=== PATIENT | male | born 1995 | race Caucasian/White ===

== ENCOUNTER 2017-05-14 10:53 | Inpatient (IN) | payer BC ==
[2017-05-14 11:55] LABS: ABS Basophils 0 10^3/ul (0-0.2); ABS Eosinophils 0 10^3/ul (0-0.6); ABS Lymphocytes 0.9 10^3/ul (1.0-4.8); ABS Monocytes 1.2 10^3/ul (0-0.8); ABS Neutrophils 17.8 10^3/ul (1.5-7.7); ABS Nucleated RBC 0 10^3/ul; Eosinophil % 0.1 % (0-6); Hematocrit 47 % (42-52); Hemoglobin 16.1 g/dl (14.0-18.0); Lymphocyte % 4.7 % (25-47); Mean Corpuscular HGB Conc 35 g/dl (31-36); Mean Corpuscular Hemoglobin 31 pg (27-31); Mean Corpuscular Volume 91 fL (80-94); Mean Platelet Volume 8 um3 (7.4-10.4); Nucleated Red Blood Cells % 0.1; Platelet Count 230 10^3/ul (150-450); Red Blood Count 5.14 10^6/ul (4.0-5.4); Red Cell Distribution Width 13 % (10.5-15)
[2017-05-14 12:27] LABS: EGFR Non-African American 108.3 (>60)
[2017-05-14] MEDS ORDERED: Ondansetron INJ* 2 MG/ML VIAL IV ONE ×2 (12:37→14:07)
[2017-05-14] MEDS ORDERED: NS 0.9% 1000 ML* 1,000 ML IV ONE ×2 (12:37→14:07)
[2017-05-14] MEDS ORDERED: Morphine INJ* 4 MG/ML 1 ML CARPUJECT IV ONE ×4 (12:37→14:37)
[2017-05-14] MEDS ORDERED: Ondansetron INJ* 2 MG/ML VIAL ONE ×2 (12:38→17:29)
[2017-05-14] MEDS ORDERED: Morphine INJ* 4 MG/ML 1 ML SYRINGE (NEW SYRINGE VERSION) ONE ×2 (12:38→14:36)
[2017-05-14] MEDS ORDERED: Iohexol 300* (CONTRAST) 10 ML SDV IV ONE (12:39)
[2017-05-14 14:12] LABS: Urine Appearance Clear; Urine Blood Negative (Negative); Urine Color Yellow; Urine Ketones Trace (Negative); Urine Protein 1+(30 mg/dL) (Negative); Urine Specific Gravity 1.014 (1.010-1.030); Urine Urobilinogen Negative (Negative)
--- NOTE | 2017-05-14 14:37 | ED ---
Abdominal Pain/Male - HPI Summary HPI Summary: Patient is an otherwise healthy 21-year-old male presenting from [facility] for a concern of rule out appendicitis. He endorses pain to the right lower quadrant, which began 3 days ago. Progressively worsening. Previously intermittent, now constant. Aggravated with movement, standing, ambulation, relieved only somewhat with rest and flexion at the hips. Denies any abdominal surgeries. Endorses fever, sweats, chills. He has been unable to eat however states when he does, this does not aggravate his symptoms. He does not feel hungry at this time. Last by mouth intake was 5 AM, having a soy-based protein shake. On exam at [facility], McBurney's point tenderness, Rovsing's, positive obturator, positive psoas. He also endorses nausea, but no vomiting. Denies constipation or diarrhea. He has otherwise healthy and takes no medications. - History of Current Complaint Chief Complaint: EDAbdPain Stated Complaint: ABD PAIN Hx Obtained From: Patient Onset/Duration: Sudden Onset Timing: Constant Severity Initially: Severe Severity Currently: Severe Pain Intensity: 10 Pain Scale Used: 0-10 Numeric Location: Discrete At: RLQ Radiates: No Character: Sharp, Cramping, Colicy Aggravating Factor(s): Nothing Alleviating Factor(s): Position Associated Signs And Symptoms: Positive: Diaphoresis, Fever, Decreased Appetite , Nausea. Negative: Cough, Chest Pain, Dizzy, Back Pain, Constipation, Blood in Stool, Urinary Symptoms, Vomiting, Diarrhea, Penile Discharge, Other - Risk Factors Testicular Torsion: Negative Cardiac Risk Factors: Negative - Allergies/Home Medications Allergies/Adverse Reactions: Allergies Allergy/AdvReac Type Severity Reaction Status Date / Time cat dander Allergy Itching Verified 05/14/17 10:58 dog dander Allergy Itching Verified 05/14/17 10:57 CAT Allergy Itching Uncoded 05/14/17 10:58 Home Medications: Home Medications LoraTADine TAB(NF) [Claritin 10 MG TAB(NF)] 10 mg PO DAILY PRN 05/14/17 [ History Confirmed 05/14/17] PMH/Surg Hx/FS Hx/Imm Hx Previously Healthy: Yes Endocrine/Hematology History: Denies: Hx Diabetes Cardiovascular History: Denies: Hx Hypertension - Immunization History Hx Pertussis Vaccination: No Immunizations Up to Date: Unable to Obtain/Confirm Infectious Disease History: No Infectious Disease History: Denies: Traveled Outside the [place] in Last 30 Days - Social History Occupation: Student Lives: Dormitory/Roommates Alcohol Use: None Hx Substance Use: No Substance Use Type: Reports: None Hx Tobacco Use: No Smoking Status (MU): Unknown if Ever Smoked Review of Systems Constitutional: Negative Negative: Fever, Chills, Fatigue, Skin Diaphoresis Eyes: Negative Cardiovascular: Negative Negative: Shortness Of Breath, Cough Positive: Abdominal Pain, Nausea. Negative: Vomiting, Diarrhea Genitourinary: Negative Positive: no symptoms reported, see HPI Musculoskeletal: Negative Neurological: Negative All Other Systems Reviewed And Are Negative: Yes Physical Exam Triage Information Reviewed: Yes Vital Signs On Initial Exam: Initial Vitals Temp Pulse Resp BP Pulse Ox 98.2 F 99 16 120/71 100 05/14/17 10:58 05/14/17 10:58 05/14/17 10:58 05/14/17 10:58 05/14/17 10:58 Vital Signs Reviewed: Yes Appearance: Positive: Well-Appearing, Well-Nourished Skin: Positive: Warm, Skin Color Reflects Adequate Perfusion Head/Face: Positive: Normal Head/Face Inspection Eyes: Positive: EOMI, SHIVANI, Conjunctiva Clear Neck: Positive: Supple, No Lymphadenopathy Respiratory/Lung Sounds: Positive: Clear to Auscultation, Breath Sounds Present Cardiovascular: Positive: Normal, RRR, Pulses are Symmetrical in both Upper and Lower Extremities Abdomen Description: Positive: Soft, Guarding, McBurney's Point Tenderness, Other: - Rovsing's positive, obturators positive, so is positive, tenderness over McBurney's point, negative Valle's Musculoskeletal: Positive: Normal, Strength/ROM Intact Neurological: Positive: Speech Normal Psychiatric: Positive: Normal Diagnostics - Vital Signs Vital Signs Temp Pulse Resp BP Pulse Ox 05/14/17 14:16 16 05/14/17 13:30 102 110/56 100 05/14/17 13:00 110 119/68 100 05/14/17 12:53 102 115/66 100 05/14/17 12:46 100.1 F 05/14/17 12:45 93 18 100 05/14/17 12:43 105/58 05/14/17 10:58 98.2 F 99 16 120/71 100 - Laboratory Lab Results: Lab Results 05/14/17 05/14/17 05/14/17 Range/Units 11:38 11:38 11:38 WBC 20.0 H (3.5-10.8) 10^3/ul RBC 5.14 (4.0-5.4) 10^6/ul Hgb 16.1 (14.0-18.0) g/dl Hct 47 (42-52) % MCV 91 (80-94) fL MCH 31 (27-31) pg MCHC 35 (31-36) g/dl RDW 13 (10.5-15) % Plt Count 230 (150-450) 10^3/ul MPV 8 (7.4-10.4) um3 Neut % (Auto) 89.2 H (38-83) % Lymph % (Auto) 4.7 L (25-47) % Horry % (Auto) 5.8 (0-7) % Eos % (Auto) 0.1 (0-6) % Baso % (Auto) 0.2 (0-2) % Absolute Neuts (auto) 17.8 H (1.5-7.7) 10^3/ul Absolute Lymphs (auto) 0.9 L (1.0-4.8) 10^3/ul Absolute Monos (auto) 1.2 H (0-0.8) 10^3/ul Absolute Eos (auto) 0 (0-0.6) 10^3/ul Absolute Basos (auto) 0 (0-0.2) 10^3/ul Absolute Nucleated RBC 0 10^3/ul Nucleated RBC % 0.1 Sodium 136 (133-145) mmol/L Potassium 4.0 (3.5-5.0) mmol/L Chloride 100 L (101-111) mmol/L Carbon Dioxide 30 (22-32) mmol/L Anion Gap 6 (2-11) mmol/L BUN 11 (6-24) mg/dL Creatinine 0.88 (0.67-1.17) mg/dL Est GFR ( Amer) 139.3 (>60) Est GFR (Non-Af Amer) 108.3 (>60) BUN/Creatinine Ratio 12.5 (8-20) Glucose 115 H (70-100) mg/dL Lactic Acid 1.7 (0.5-2.0) mmol/L Calcium 9.9 (8.6-10.3) mg/dL Magnesium 1.9 (1.9-2.7) mg/dL Total Bilirubin 0.80 (0.2-1.0) mg/dL AST 14 (13-39) U/L ALT 13 (7-52) U/L Alkaline Phosphatase 82 (34-104) U/L Total Creatine Kinase 44 (10-223) U/L C-Reactive Protein 24.93 H (< 5.00) mg/L Total Protein 8.0 (6.4-8.9) g/dL Albumin 4.7 (3.2-5.2) g/dL Globulin 3.3 (2-4) g/dL Albumin/Globulin Ratio 1.4 (1-3) Lipase 13 (11.0-82.0) U/L Urine Color Urine Appearance Urine pH (5-9) Ur Specific Highland (1.010-1.030) Urine Protein (Negative) Urine Ketones (Negative) Urine Blood (Negative) Urine Nitrate (Negative) Urine Bilirubin (Negative) Urine Urobilinogen (Negative) Ur Leukocyte Esterase (Negative) Urine WBC (Auto) (Absent) Urine RBC (Auto) (Absent) Urine Bacteria (Absent) Urine Glucose (Negative) 05/14/17 Range/Units 13:55 WBC (3.5-10.8) 10^3/ul RBC (4.0-5.4) 10^6/ul Hgb (14.0-18.0) g/dl Hct (42-52) % MCV (80-94) fL MCH (27-31) pg MCHC (31-36) g/dl RDW (10.5-15) % Plt Count (150-450) 10^3/ul MPV (7.4-10.4) um3 Neut % (Auto) (38-83) % Lymph % (Auto) (25-47) % Horry % (Auto) (0-7) % Eos % (Auto) (0-6) % Baso % (Auto) (0-2) % Absolute Neuts (auto) (1.5-7.7) 10^3/ul Absolute Lymphs (auto) (1.0-4.8) 10^3/ul Absolute Monos (auto) (0-0.8) 10^3/ul Absolute Eos (auto) (0-0.6) 10^3/ul Absolute Basos (auto) (0-0.2) 10^3/ul Absolute Nucleated RBC 10^3/ul Nucleated RBC % Sodium (133-145) mmol/L Potassium (3.5-5.0) mmol/L Chloride (101-111) mmol/L Carbon Dioxide (22-32) mmol/L Anion Gap (2-11) mmol/L BUN (6-24) mg/dL Creatinine (0.67-1.17) mg/dL Est GFR ( Amer) (>60) Est GFR (Non-Af Amer) (>60) BUN/Creatinine Ratio (8-20) Glucose (70-100) mg/dL Lactic Acid (0.5-2.0) mmol/L Calcium (8.6-10.3) mg/dL Magnesium (1.9-2.7) mg/dL Total Bilirubin (0.2-1.0) mg/dL AST (13-39) U/L ALT (7-52) U/L Alkaline Phosphatase (34-104) U/L Total Creatine Kinase (10-223) U/L C-Reactive Protein (< 5.00) mg/L Total Protein (6.4-8.9) g/dL Albumin (3.2-5.2) g/dL Globulin (2-4) g/dL Albumin/Globulin Ratio (1-3) Lipase (11.0-82.0) U/L Urine Color Yellow Urine Appearance Clear Urine pH 7.0 (5-9) Ur Specific Highland 1.014 (1.010-1.030) Urine Protein 1+(30 mg/dl) A (Negative) Urine Ketones Trace A (Negative) Urine Blood Negative (Negative) Urine Nitrate Negative (Negative) Urine Bilirubin Negative (Negative) Urine Urobilinogen Negative (Negative) Ur Leukocyte Esterase Negative (Negative) Urine WBC (Auto) Trace(0-5/hpf) (Absent) Urine RBC (Auto) Trace(0-2/hpf) (Absent) Urine Bacteria Absent (Absent) Urine Glucose Negative (Negative) Result Diagrams: 05/14/17 11:38 05/14/17 11:38 Lab Statement: Any lab studies that have been ordered have been reviewed, and results considered in the medical decision making process. Abdominal Pain Fem Course/Dx - Course Course Of Treatment: During the course of treatment, the patient is evaluated for a possible appendicitis. Labs obtained which show a 20.0 white count. Afebrile on arrival, however prior to arrival [facility] noted to be at 101. He was not given anything for pain, and immediately sent here to the ED. Endorses nausea, but denies vomiting. On physical exam, Rovsing's positive, McBurney's point tenderness positive, severe pain to light palpation of the right lower quadrant, with no palpation to all other quadrants putting the epigastric region. Denies any abdominal surgeries. Positive psoas, positive obturators. During the course of treatment, the patient is given then 4 mg Zofran and 4 mg morphine with good effect. One hour later, he continues to complain of pain and again is given 4 mg Zofran and 4 mg morphine. 30 minutes later he continues to have pain and 4 mg more of morphine is given. Ultracet ultrasound obtained as patient is thin and may get a good read. No official reading, but discussed with binder technician, who states a clear appendicitis with an appendicolith is present. Dr. Jackson called who agrees to come to see the patient in the ED. Dr. Jackson agrees to take him to the OR at this time, patient is discharged from ED. - Diagnoses Differential Diagnosis/HQI/PQRI: Appendicitis Provider Diagnoses: Appendicitis Discharge - Discharge Plan Condition: Stable Disposition: ADMITTED TO [facility] Referrals: [facility] Tl ESCOTO [Primary Care Provider] -
--- NOTE | 2017-05-14 14:39 | RAD ---
HISTORY: Rule out appendicitis. No other history is provided. COMPARISONS: None TECHNIQUE: Multiple transverse and longitudinal ultrasound images were obtained of the right lower quadrant using grayscale and color Doppler imaging. FINDINGS: There is tubular, vermiform, hollow viscus with bowel mucosal signature consistent with the appendix. This is dilated measuring 1.2 to 3.1 cm in caliber. An appendicolith is noted at the base. There is mucosal thickening up to 1 cm. This is noncompressible without peristalsis. There is increased echogenicity of the periappendiceal fat. IMPRESSION: DILATED APPENDIX WITH AN APPENDICOLITH AND INFLAMMATORY CHANGE OF THE PERIAPPENDICEAL FAT CONSISTENT WITH ACUTE APPENDICITIS. THERE IS NO APPRECIABLE LOCULATED FLUID COLLECTION TO SUGGEST ABSCESS.
[2017-05-14] MEDS ORDERED: Piperacillin/Tazobac (*) 3.375 GM BAG ONE (14:54)
[2017-05-14] MEDS ORDERED: Piperacillin/Tazobac ADVAN(*) 3.375 GM in NS 0.9% 100 ML* 100 ML IVPB ONE (14:54)
[2017-05-14] MEDS ORDERED: Midazolam* 1 MG/ML 2 ML VIAL (2 MG) ONE (15:09)
[2017-05-14] MEDS ORDERED: fentaNYL* 50 MCG/ML 2 ML VIAL (100 MCG VIAL) ONE (15:09)
[2017-05-14] MEDS ORDERED: Bupivacaine 0.25% SDV* 30 ML ONE (15:10)
[2017-05-14] MEDS ORDERED: Rocuronium* 10 MG/ML VIAL ONE ×2 (15:10→17:09)
[2017-05-14] MEDS ORDERED: Propofol* 10 MG/ML 20 ML BTL IV PUSH ONE (15:12)
[2017-05-14] MEDS ORDERED: Lidocaine 2% PF * 5 ML VIAL ONE (15:12)
[2017-05-14] MEDS ORDERED: Sodium Citrate/Citric Acid* 15 ML UDC PO ONE (15:15)
[2017-05-14] MEDS ORDERED: Famotidine IV* 10 MG/ML 2 ML (20 mg) IV ONE (15:15)
[2017-05-14] MEDS ORDERED: Sodium Citrate/Citric Acid* 15 ML UDC ONE (15:43)
[2017-05-14] MEDS ORDERED: Acetaminophen IV 1GM/100ML * 100 ML ONE (16:17)
[2017-05-14] MEDS ORDERED: Morphine INJ* 2 MG/ML 1 ML CARPUJECT IV PRN (16:36)
[2017-05-14] MEDS ORDERED: fentaNYL* 50 MCG/ML 2 ML VIAL (100 MCG VIAL) IV PRN (16:36)
[2017-05-14] MEDS ORDERED: diPHENhydraMINE IV* 50 MG/ML 1 ml VIAL (BENADRYL) IV PRN (16:36)
[2017-05-14] MEDS ORDERED: oxyCODONE TAB* 5 MG TAB PO PRN ×2 (16:36)
[2017-05-14] MEDS ORDERED: PROCHLORPERAZINE INJ 5 MG/ML 2 ML VIAL IV PRN (16:36)
[2017-05-14] MEDS ORDERED: Ondansetron INJ* 2 MG/ML VIAL IV PRN (16:36)
[2017-05-14] MEDS ORDERED: Naloxone* 0.4 MG/ML 1 ML VIAL IV PRN (16:36)
[2017-05-14] MEDS ORDERED: HYDROmorphone INJ* 1 MG/ML CARPUJECT SYRINGE IV PRN (16:36)
[2017-05-14] MEDS ORDERED: HYDROmorphone INJ* 1 MG/ML CARPUJECT SYRINGE ONE (16:39)
[2017-05-14] MEDS ORDERED: Ketorolac INJ* 30 MG/ML 1 ML VIAL ONE (17:38)
--- NOTE | 2017-05-14 17:55 | BRIEFOPN ---
Brief Operative Note - Surgery Procedures: OPERATIVE REPORT PRE-OP: Acute appendicitis POST-OP: Acute ruptured appendicitis with purulent peritonitis PROCEDURE: Laparoscopic appendectomy SURGEON: MD Manuel ANESTHESIA: General with local Dr. Ibarra ASST: VY Hopkins-student IVF: 3 liter crystalloid EBL: min SPECIMEN: appendix DRAIN: #10 ZAC WOUND CLASS: 4 COMPLICATIONS: none TO PACU
[2017-05-14] MEDS ORDERED: Acetaminophen TAB* 325 MG PO PRN (17:56)
[2017-05-14] MEDS ORDERED: Morphine INJ* 4 MG/ML 1 ML SYRINGE (NEW SYRINGE VERSION) IV PRN (17:56)
[2017-05-14] MEDS: NS 0.9% 1000 ML* 1,000 ML IV SCH (20:32)
[2017-05-14] MEDS: Piperacillin/Tazobac ADVAN(*) 3.375 GM in NS 0.9% 100 ML* 100 ML IVPB SCH (20:33)
[2017-05-14] MEDS: Heparin VIAL(*) 5000 UNITS/ML VIAL (FIVE THOUSAND) SUBCUT SCH (21:55)
--- NOTE | 2017-05-14 22:13 | HP ---
CC: [facility] * HISTORY AND PHYSICAL ADMISSION: DATE OF ADMISSION: 05/14/17 The patient was seen here in the emergency room in consultation by VY Genao. REASON FOR CONSULTATION: Right lower quadrant abdominal pain and abnormal ultrasound. 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 This was associated with the headache and nausea, though he did not vomit. He was felt to be constipated all throughout the weekend. Over the course of the weekend, he developed generalized worsening abdominal pain, yesterday became more localized in the right lower quadrant making it difficult for him to ambulate. He has been keeping liquids and solids down, however, despite being nauseated. Today, he went to the [facility] and was noted to have a significant right lower quadrant abdominal pain and was referred here to the emergency room for further evaluation. Here in the emergency room, he was noted to have a white blood cell count of 20, 000 with a slight increase in neutrophil percentage. His electrolytes are within normal limits. Lactic acid was 1.7. His C-reactive protein of 24.93. Urinalysis was negative. He also underwent an ultrasound of his right lower quadrant. I did review these images. These had been read by our radiologist here at [facility] and it shows a dilated appendix with appendicolith and inflammatory change in the periappendiceal fat consistent with acute appendicitis. There was no appreciable loculated fluid collection, which would suggest an abscess. Surgical consultation was obtained. PAST MEDICAL HISTORY: Childhood asthma. PAST SURGICAL HISTORY: [place] tooth removal, he has not had abdominal surgery. MEDICATIONS: Include Claritin daily. ALLERGIES: Include CAT and DOG DANDER and ENVIRONMENTAL ALLERGIES. He has no known drug allergies. 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 He does not smoke. He drinks alcohol on a social basis. REVIEW OF SYSTEMS: Cerebrovascular: No dizziness or visual disturbances. Cardiovascular: No chest pain, shortness of breath or congenital heart disease. Pulmonary: As per above. He has not had problems with asthma for at least 10 years. GI: Unremarkable. : Unremarkable. PHYSICAL EXAMINATION GENERAL: He is a very slender male, lying on his left side. He appears to be unremarkable. VITAL SIGNS: His temperature is 100.1, heart rate 111, blood pressure 101/55, respirations are 20. HEENT: Oral mucosa is slightly dry. LUNGS: Clear to auscultation with normal respiratory effort. HEART: Regular rate and rhythm without murmurs, rubs or gallops. ABDOMEN: His abdomen is rather firm, but nondistended. He has diminished bowel sounds throughout. There are no prior surgical incisions or hernia. He has exquisite tenderness in the right lower quadrant with rigidity and guarding. There is no generalized peritoneal irritation. PSYCHIATRIC: He is awake, alert, and oriented x3. There is normal judgment and insight. DIAGNOSTIC STUDIES: I did review the ultrasound of the appendix and this appears to be consistent with acute appendicitis. IMPRESSION: Acute appendicitis, with appendicolith by ultrasound. PLAN: Laparoscopic appendectomy today. I discussed the procedure with the patient and the risks of, but not limited to , of bleeding, infection, intraabdominal abscess formation, injury to peritoneal and retroperitoneal structures, possibility of an open procedure, possibility that other indicated surgical procedures may need to be performed were also discussed. Risks of general anesthesia and deep vein thrombosis as well as recovery times and hospital stays were discussed briefly. In addition, I briefly discussed nonoperative management with IV antibiotics. It appears that there was an appendicolith on the ultrasound. These patients have shown not to do well as well with IV antibiotics and no surgery. In addition, I think with his exquisite tenderness and slight delay in presentation that surgery is the indicated plan of care and we will proceed this afternoon when the operating room is available. [id number]/CPS #: [id number] MTDD
[2017-05-15] MEDS: Piperacillin/Tazobac ADVAN(*) 3.375 GM in NS 0.9% 100 ML* 100 ML IVPB SCH ×2 (04:32→12:35)
[2017-05-15] MEDS: NS 0.9% 1000 ML* 1,000 ML IV SCH ×3 (04:32→20:49)
[2017-05-15] MEDS: Heparin VIAL(*) 5000 UNITS/ML VIAL (FIVE THOUSAND) SUBCUT SCH ×3 (05:39→22:38)
[2017-05-15] MEDS: Ketorolac INJ* 30 MG/ML 1 ML VIAL IV PUSH PRN ×2 (05:40→13:56)
--- NOTE | 2017-05-15 08:27 | PN ---
Progress Note - Progress Note Date of Service: 05/15/17 SOAP: Subjective: Feels much better Incisional pain when getting out of bed Voiding without difficulty Objective: Temp Pulse Resp BP Pulse Ox 98.4 F 94 16 111/57 95 05/15/17 07:16 05/15/17 07:16 05/15/17 07:31 05/15/17 07:16 05/15/17 07:31 Intake & Output 05/13/17 05/14/17 05/15/17 05/16/17 06:59 06:59 06:59 06:59 Intake Total 6580 Output Total 795 Balance 5785 Weight 150 lb Intake: IV Fluids 6080 NS (0.9%) 980 lr 3000 IVPB 100 ABX - ZOSYN 100 Oral 400 Output: ZAC #1 145 Urine 650 Other: Estimated Void Medium # Bowel Movements 0 # Voids 1 PEX: Comfortable Lungs are clear Cor is RRR Abd is soft and slightly distended. Bowel sounds are diminished throughout. Incisions are clean and dry. ZAC in place with turbid quinn fluid in bulb. No labs Assessment: POD#1 s/p lap appy for perforated appendicitis with purulent peritonitis Plan: Continue IV abx ZAC drain Clear liquids Increase activity Sub heparin/IS Check WBC in AM 3/7
--- NOTE | 2017-05-15 17:41 | OP ---
CC: [facility] * DATE OF OPERATION: 05/14/17 - ROOM #333 DATE OF : [birth year] SURGEON: Antonio Jackson MD. FINANCIAL SERVICES DIRECTOR: VY Garcia student. ANESTHESIOLOGIST: Dr. Ibarra. ANESTHESIA: General and local. PRE-OP DIAGNOSIS: Acute appendicitis. POST-OP DIAGNOSIS: Perforated acute appendicitis with purulent peritonitis. OPERATIVE PROCEDURE: Laparoscopic appendectomy. ESTIMATED BLOOD LOSS: Minimal. IV FLUIDS: 2 L of crystalloid. WOUND CLASSIFICATION: 4. DRAINS: #10 ZAC drain in the right lower quadrant and pelvis. SPECIMEN: Appendix. COMPLICATIONS: None. FINDINGS: The patient had a perforated mid appendix with purulent peritonitis. The base of the appendix and cecum appeared to be unremarkable. 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 The pain became more localized in the right lower quadrant. This was associated with nausea and some anorexia, but no diarrhea. He had low- grade fever. He presented to the [facility] this morning and was referred to the emergency room. In the emergency room, he was noted to have white blood cell count of 20,000 and right lower quadrant abdominal discomfort. An ultrasound confirmed what appears to be acute appendicitis. He is now to undergo an appendectomy. The procedure was discussed with the patient and the risks and benefits as well as alternatives of nonoperative management were discussed with the patient and outlined in the preoperatively transcribed history and physical. DESCRIPTION OF PROCEDURE: Written informed consent was obtained, the abdomen was marked with indelible ink and the patient had received preoperative IV antibiotics. He was taken to the operating room, placed in the supine position. Sequential compression devices and warming blanket were applied. General anesthesia was administered and the abdomen was prepped and draped in usual sterile fashion. Time-out verification was completed. Initially, a small vertical incision was made just at and below the umbilicus at the midline and the peritoneal cavity was entered under direct vision. A 12- mm blunt port was inserted and the abdomen was insufflated to 15 mmHg. [address] the camera, it was noted that there was purulent fluid in all 4 quadrants of the abdomen with fibrin consistent with acute peritonitis. A 5-mm port was placed in the left lower abdominal wall and a second 5-mm port was placed in the right upper abdominal wall. We were able to suction some of the purulence to better improve visualization. I identified the terminal ileum and this appeared to be unremarkable. The cecum was normal, but somewhat thickened. The base of the appendix I could see projecting inferiorly, but the appendix followed a lateral path and curled up along the lateral border behind the cecum and it was obvious that once we were able to visualize that the distal half of the appendix was edematous and necrotic and there was an area in the mid portion of the appendix where it had perforated, although no fecalith was noted. This was quite adherent to the lateral and posterior abdominal wall and with mainly blunt dissection I was able to work from the base of the appendix laterally and mobilize the appendix up into view to the point where I was able to identify the mesentery, which I took sequentially with the LigaSure device. Once I was able to bring the appendix up into view, it was quite long and as mentioned, the distal half was the involved portion, and fortunately the base and the cecum were unremarkable. When this dissection was complete, I used an Endo DAKOTA quinn load of a 45-mm stapler to divide the appendix at its base. The appendix was placed in the Endo Catch bag, brought out through the umbilical incision. The staple line appeared to be intact without evidence of bleeding. I used almost 5 to 6 L of saline irrigating all 4 quadrants of the abdomen as thoroughly as possible. No abscess was noted. A #10 ZAC drain was placed into the pelvis and right lower quadrant, brought out through a separate stab wound in the right lower quadrant of the abdominal wall. All ports were then removed under direct vision. There was no abdominal wall bleeding. The umbilical fascia was closed with interrupted 0 Vicryl suture. The skin at all 3 incisions was approximated with subcuticular 4-0 Vicryl suture. Steri-Strips were applied. The patient tolerated the procedure well and was taken to the recovery room in stable condition. [id number]/[facility] #: [id number] HARLEY
[2017-05-15] MEDS: Piperacillin/Tazobactam 13.5 GM IV 24 hour continuous infusion IVPB SCH ×2 (20:50)
[2017-05-16] MEDS: Ondansetron INJ* 2 MG/ML VIAL IV PRN ×2 (03:14→13:08)
[2017-05-16] MEDS ORDERED: Iohexol 350* (CONTRAST) 500 ML MDV IV ONE (04:33)
[2017-05-16] MEDS: NS 0.9% 1000 ML* 1,000 ML IV SCH ×2 (04:49→13:07)
[2017-05-16] MEDS: Ketorolac INJ* 30 MG/ML 1 ML VIAL IV PUSH PRN ×2 (05:49→13:10)
[2017-05-16] MEDS: Heparin VIAL(*) 5000 UNITS/ML VIAL (FIVE THOUSAND) SUBCUT SCH ×3 (05:54→22:23)
[2017-05-16 05:56] LABS: ABS Basophils 0 10^3/ul (0-0.2); ABS Eosinophils 0 10^3/ul (0-0.6); ABS Lymphocytes 1.6 10^3/ul (1.0-4.8); ABS Monocytes 0.8 10^3/ul (0-0.8); ABS Neutrophils 10.1 10^3/ul (1.5-7.7); ABS Nucleated RBC 0 10^3/ul; Eosinophil % 0.3 % (0-6); Hematocrit 40 % (42-52); Hemoglobin 13.7 g/dl (14.0-18.0); Lymphocyte % 12.8 % (25-47); Mean Corpuscular HGB Conc 34 g/dl (31-36); Mean Corpuscular Hemoglobin 32 pg (27-31); Mean Corpuscular Volume 92 fL (80-94); Mean Platelet Volume 8 um3 (7.4-10.4); Nucleated Red Blood Cells % 0; Platelet Count 203 10^3/ul (150-450); Red Blood Count 4.34 10^6/ul (4.0-5.4); Red Cell Distribution Width 13 % (10.5-15); White Blood Count 12.5 10^3/ul (3.5-10.8)
[2017-05-16 06:09] LABS: EGFR Non-African American 120.9 (>60)
--- NOTE | 2017-05-16 07:50 | RAD ---
INDICATION: Chest pain. Short of breath. Evaluate for pulmonary embolus. COMPARISON: None TECHNIQUE: Axial source images were obtained from the thoracic inlet to the hemidiaphragms following administration of [address] angiographic technique was utilized. Coronal and sagittal reconstructed images were acquired. CHEST FINDINGS: Neck/thyroid: The visualized neck to include the thyroid appear normal. Chest wall: There are no acute abnormalities of the bony thorax or chest wall. There is no supraclavicular, infraclavicular, or axillary lymphadenopathy. Lungs : There are no pulmonary parenchymal masses. There is mild bibasal atelectasis. The pulmonary interstitium appears normal. There are no endobronchial lesions. Cardiomediastinal structures: There is no CT evidence of acute pulmonary embolic disease. Examination is mildly limited due to the degree of opacification of the pulmonary arterial tree. No pulmonary emboli are identified and the central pulmonary vessels are clearly without emboli. The heart is normal in size. There is no pericardial effusion. There is no evidence of aortic aneurysm or dissection. There is no mediastinal or hilar adenopathy. The esophagus appears normal. Pleura : There are small bilateral pleural effusions. Other: None. IMPRESSION: MILDLY LIMITED EXAMINATION. NO ACUTE PULMONARY EMBOLI ARE IDENTIFIED. SMALL BILATERAL PLEURAL EFFUSIONS AND BIBASILAR ATELECTASIS.
--- NOTE | 2017-05-16 09:06 | PN ---
Progress Note - Progress Note Date of Service: 05/16/17 SOAP: Subjective: Patient inititally seen at 0745 this morning He had about an hour of some "chest tightness" last night-now resolved. No SOB or wheezing and no reflux type symptoms. He says this happens to him when he stays in hotels and he blames it on the pillows and detergents. Symptoms resolved when he changed pillows last night. He has history of childhood asthma but says symptoms were different than this last night He is now without complaint He is tolerating po without nausea He is passing large amounts of flatus- no BM He is ambulating in the halls without difficulty. Pain is adequately controlled. Objective: Tmax 100 [] Temp Pulse Resp BP Pulse Ox 98.6 F 81 17 123/58 98 05/16/17 07:40 05/16/17 07:40 05/16/17 07:40 05/16/17 07:40 05/16/17 07:40 Intake & Output 05/14/17 05/15/17 05/16/17 05/17/17 06:59 06:59 06:59 06:59 Intake Total 6580 6666 240 Output Total 795 3405 300 Balance 5785 3261 -60 Weight 150 lb 150 lb Intake: IV Fluids 6080 3079 ABX - ZOSYN 125 NS (0.9%) 980 1968 lr 3000 IVPB 100 1097 ABX - ZOSYN 100 111 NS (0.9%) 986 Oral 400 2490 240 Output: ZAC #1 145 30 Urine 650 3375 300 Other: Estimated Void Medium # Bowel Movements 0 # Voids 1 PEX: Comfortable-awake and alert Lungs are clear without wheezing, rales or rhonchi. Bases are clear Cor is RRR Abd is soft and slightly distended. Bowel sounds are present but hypoactive. Incisions are clean and dry-ZAC in place with some thin serous fluid in bulb. Ext without edema Laboratory Results - last 24 hr 05/16/17 05/16/17 05:19 05:19 WBC 12.5 H RBC 4.34 Hgb 13.7 L Hct 40 L MCV 92 MCH 32 H MCHC 34 RDW 13 Plt Count 203 MPV 8 Neut % (Auto) 80.7 Lymph % (Auto) 12.8 L [place] % (Auto) 6.0 Eos % (Auto) 0.3 Baso % (Auto) 0.2 Absolute Neuts (auto) 10.1 H Absolute Lymphs (auto) 1.6 Absolute Monos (auto) 0.8 Absolute Eos (auto) 0 Absolute Basos (auto) 0 Absolute Nucleated RBC 0 Nucleated RBC % 0 Sodium 138 Potassium 3.5 Chloride 106 Carbon Dioxide 26 Anion Gap 6 BUN 7 Creatinine 0.80 Est GFR ( Amer) 155.5 Est GFR (Non-Af Amer) 120.9 BUN/Creatinine Ratio 8.8 Glucose 112 H Calcium 8.[address] reviewed-no evidence of PE or other acute change Assessment: POD#2 s/p lap appy for acute appendicitis with perforation and purulent peritonitis-ZAC in place Chest tightness last night-resolved. Not certain etiology of complaints last night but they have resolved and physical exam is unremarkable. He does not appear to have signs of sepsis with WBC trending down and other labs WNL and he is mobilizing fluid and GI function is returning. No evidence of PE and I do not think discomfort last night had cardiac etiology. Plan: Continue IV antibiotics-still with intermittent low grade temperature and elevated WBC. Advance diet-full liquids Decrease IVF Pul toilet/subq heparin If chest tightness returns, check EKG and obtain hospitalist consult.
[2017-05-16] MEDS: Piperacillin/Tazobactam 13.5 GM IV 24 hour continuous infusion IVPB SCH ×2 (20:58)
[2017-05-17] MEDS: Ondansetron INJ* 2 MG/ML VIAL IV PRN (01:50)
[2017-05-17 05:18] LABS: ABS Basophils 0 10^3/ul (0-0.2); ABS Eosinophils 0.2 10^3/ul (0-0.6); ABS Lymphocytes 1.5 10^3/ul (1.0-4.8); ABS Monocytes 0.6 10^3/ul (0-0.8); ABS Neutrophils 6.8 10^3/ul (1.5-7.7); ABS Nucleated RBC 0 10^3/ul; Eosinophil % 1.9 % (0-6); Hematocrit 38 % (42-52); Lymphocyte % 16.1 % (25-47); Mean Corpuscular HGB Conc 34 g/dl (31-36); Mean Corpuscular Hemoglobin 31 pg (27-31); Mean Corpuscular Volume 92 fL (80-94); Mean Platelet Volume 8 um3 (7.4-10.4); Nucleated Red Blood Cells % 0; Platelet Count 180 10^3/ul (150-450); Red Blood Count 4.13 10^6/ul (4.0-5.4); Red Cell Distribution Width 13 % (10.5-15)
[2017-05-17] MEDS: Heparin VIAL(*) 5000 UNITS/ML VIAL (FIVE THOUSAND) SUBCUT SCH ×2 (05:22→17:34)
[2017-05-17] MEDS: NS 0.9% 1000 ML* 1,000 ML IV SCH (05:24)
[2017-05-17 07:46] VITALS: BP 122/67
--- NOTE | 2017-05-17 10:13 | PN ---
Progress Note - Progress Note Date of Service: 05/17/17 SOAP: Subjective: Continues to feel better-tolerating full liquids and had several loose BM's and is passing flatus Some mild nausea last night Pain is well controlled with toradol No further chest discomfort Objective: Tmax 100 Temp Pulse Resp BP Pulse Ox 98.9 F 79 17 122/67 96 05/17/17 07:21 05/17/17 07:21 05/17/17 07:46 05/17/17 07:21 05/17/17 07:21 Intake & Output 05/15/17 05/16/17 05/17/17 05/18/17 06:59 06:59 06:59 06:59 Intake Total 6580 6666 3377 Output Total 795 3405 3525 Balance 5785 3261 -148 Weight 150 lb 150 lb Intake: IV Fluids 6080 3079 1874 ABX - ZOSYN 125 NS (0.9%) 980 1968 1874 lr 3000 IVPB 100 1097 473 ABX - ZOSYN 100 111 473 NS (0.9%) 986 Oral 400 2490 1030 Output: ZAC #1 145 30 25 Urine 650 3375 3500 Other: Estimated Void Medium # Bowel Movements 0 1 Estimated Stool Amount Medium # Voids 1 PEX: Comfortable Lungs are clear Cor is RRR Abd is soft and slightly distended. Incisions are clean and dry. Bowel sounds are present but are slightly decreased throughout. ZAC with small amount of serosanguinous drainage in bulb Laboratory Results - last 24 hr 05/17/17 04:51 WBC 9.0 RBC 4.13 Hgb 13.0 L Hct 38 L MCV 92 MCH 31 MCHC 34 RDW 13 Plt Count 180 MPV 8 Neut % (Auto) 75.1 Lymph % (Auto) 16.1 L [place] % (Auto) 6.5 Eos % (Auto) 1.9 Baso % (Auto) 0.4 Absolute Neuts (auto) 6.8 Absolute Lymphs (auto) 1.5 Absolute Monos (auto) 0.6 Absolute Eos (auto) 0.2 Absolute Basos (auto) 0 Absolute Nucleated RBC 0 Nucleated RBC % 0 Assessment: POD# 3 s/p lap appy for perforated acute appendicitis with purulent peritonitis Nl WBC this morning. Tolerating po and ileus has resolved Plan: D/C home today D/C ZAC drain today Advance diet 10 days of oral Augmentin NSAID's and tylenol for pain-he has not needed narcotics for pain Office follow up nest week. Post-op instructions given and questions answered
--- NOTE | 2017-05-17 13:55 | PN ---
Progress Note - Progress Note Date of Service: 05/17/17 Note: ZAC drain removed w/o incident; DSD placed; instructions reviewed. Home later today.
--- NOTE | 2017-05-18 00:45 | DS ---
CC: [facility]; [facility] * DISCHARGE SUMMARY: DATE OF ADMISSION: 05/15/17 DATE OF DISCHARGE: 05/17/17 PRINCIPAL DIAGNOSIS: Acute perforated appendicitis with purulent peritonitis. SECONDARY DIAGNOSIS: None. PROCEDURE PERFORMED: Laparoscopic appendectomy. DISPOSITION: To home. CONDITION: Good. DISPOSITION INSTRUCTIONS: The patient was given a prescription for Augmentin 875 mg p.o. b.i.d. for 10 days. He also an office appointment was made to be seen in the surgical office in 1 week. Written instructions were given and he was instructed to take nonsteroidal pain medicines as well as plain Tylenol for discomfort. A narcotic analgesia prescription was not given. He was allowed to advance his diet as tolerated and perform no heavy exercise, although he was allowed to walk stairs and drive when he was comfortable. He was instructed to call the office should he develop fever, incisional redness, severe abdominal pain, nausea, vomiting, abdominal distention, or have other questions or concerns. HISTORY OF PRESENT ILLNESS: Mr. 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 He was noted to have a low-grade fever and was slightly tachycardic. White blood cell count was 20,000. He had tenderness mainly in the right lower quadrant, but this was also generalized. An ultrasound performed showed findings consistent with acute appendicitis. Surgical consultation was obtained. HOSPITAL COURSE: The patient was seen in surgical consultation in the emergency room and was felt to have acute appendicitis and was started on IV antibiotics and IV fluids. He was kept n.p.o. and on the afternoon of admission , he was taken to the operating room where he underwent a laparoscopic appendectomy for an acute perforated appendicitis with purulent peritonitis. A ZAC drain was left in place for three days postoperatively, and was removed on the day of discharge. Postoperatively, he was maintained on intravenous Zosyn and subcutaneous heparin. His white blood cell count returned to normal on the day of discharge. He was afebrile for 24 hours on discharge. He was tolerating a full liquid diet, having bowel movements and the ZAC drain was removed. On postoperative day #3, he was discharged to home with the above instructions. [id number]/[facility] #: [id number] [place]
== END 2017-05-17 18:38 | disposition home or self-care (01) | DRG 225 ==
LOC: ED 10:53 → OR 15:47 → OBSVTOIN 17:56 → SSU 17:56 → INTOOBSV 17:56 → OBSVTOIN 05-15 08:19
PROVIDERS: ADMIT Surgery; ATTEND Surgery
PROC: 0DTJ4ZZ Resection of Appendix, Percutaneous Endoscopic Approach (ICD-10-PCS; principal; 2017-05-14 15:30)
DX: K35.3 Acute appendicitis with localized peritonitis (principal); K56.7 Ileus, unspecified; J45.909 Unspecified asthma, uncomplicated; Z91.048 Other nonmedicinal substance allergy status; Z72.89 Other problems related to lifestyle; K38.1 Appendicular concretions; R11.0 Nausea; R07.89 Other chest pain
CPT/HCPCS: 36415; 71275; 76705; 80048; 80053; 81003; 81015; 82550; 83605; 83690; 83735; 85025; 86140; 87086; 88304; 94760; 96365; 96372; 99283; A9270-GY; C1776; G0378; J1170; J1644; J1885; J2250; J2270; J2405; J2543; J2704; J3010; Q9967